=== PATIENT | male | born 1995 | race Caucasian/White ===

== ENCOUNTER 2019-05-04 22:22 | Emergency (ER) | payer BC ==
[~2019-05-04] VITALS: Ht 180.3 cm; Wt 72.6 kg
== END 2019-05-04 23:40 | disposition left against medical advice (07) ==
LOC: ER 22:27
DX: E11.9 Type 2 diabetes mellitus without complications (principal); Z53.21 Procedure and treatment not carried out due to patient leaving prior to being seen by health care provider
CPT/HCPCS: A4663